=== PATIENT | female | born 1955 | race Caucasian/White ===

== ENCOUNTER 2017-01-09 20:57 | Emergency (ER) | payer MEDICAID ==
[2016-04-18 16:29] VITALS: BMI 41.2
[~2017-01-09 20:57] MED LIST: BENADRYL50 MG PO; CYCLOBENZAPRINE10 MG PO; DIFLUCAN200 MG PO; EFFEXOR75 MG PO; HYDROCODONE-APA1 TAB PO; IBUPROFEN600 MG PO; LEVAQUIN500 MG PO; LEVOTHYROXINE112 MCG PO; NEURONTIN600 MG PO; NORVASC5 MG PO; OMEPRAZOLE20 M1 PO; SUDOGEST30 MG PO; TENORETIC 50 TA1 TAB PO; ZANTAC150 MG PO; ZYRTEC10 MG PO
== END 2017-01-09 22:10 | disposition home or self-care (01) ==
LOC: D.ER 20:57
DX: S29.012A Strain of muscle and tendon of back wall of thorax, initial encounter (principal); V43.62XA Car passenger injured in collision with other type car in traffic accident, initial encounter; Y93.89 Activity, other specified; Y92.89 Other specified places as the place of occurrence of the external cause; F17.200 Nicotine dependence, unspecified, uncomplicated; E03.9 Hypothyroidism, unspecified; I10 Essential (primary) hypertension; F32.9 Major depressive disorder, single episode, unspecified

== ENCOUNTER 2017-04-14 09:14 | Day surgery (SDC) | payer MEDICAID ==
[~2017-04-14] VITALS: Ht 160 cm; Wt 113.2 kg
[2017-04-14] VITALS (10 sets, daily range): BP systolic 116–147; BP diastolic 42–70; Ht 160 cm; Wt 113.2 kg
[~2017-04-14 09:14] MED LIST changes: +LEVOTHYROXINE100 MCG PO; -LEVOTHYROXINE112 MCG PO
[2017-04-14] MEDS ORDERED: OMEPRAZOLE20 M1 PO (09:55)
[2017-04-14] MEDS ORDERED: ZIAC 10-6.25 MG1 TAB PO (09:56)
[2017-04-14 10:27] LABS: BASOPHILS 0.2 % (0-2); EOSINOPHILS 3.2 % (0-7); HEMOGLOBIN 13.5 g/dL (12-16); IMMATURE GRANULOCYTES 0.2 % (0-5); LYMPHOCYTES 46.7 % (15-50); MCH 31.3 pg (26.0-34.0); MCHC 35.5 g/dL (31.0-37.0); MCV 88.2 fL (80.0-100.0); MEAN PLATELET VOLUME 9.3 fL (7.4-10.4); MONOCYTES 7.8 % (2-11); NEUTROPHILS 41.9 % (40-80); PLATELET COUNT 183 10x3/uL (130-400); RBC 4.31 10x6/uL (4.00-5.40); RDW 12.5 % (11.5-14.5)
[2017-04-14 10:38] LABS: CALC OSMOLALITY 276 mosm/kg (275-300); CALCIUM 9.7 mg/dL (8.5-10.1); CARBON DIOXIDE 28.2 mmol/L (21.0-32.0); CHLORIDE - SERUM 101 mmol/L (98-107); CREATININE - SERUM 0.8 mg/dL (0.6-1.3); GLUCOSE 109 mg/dL (74-106); POTASSIUM - SERUM 3.7 mmol/L (3.5-5.1); SODIUM 138 mmol/L (136-145); UREA NITROGEN 12 mg/dL (7-18); eGFR NON AFRICAN AMERICAN 77 mL/min (90-120)
--- NOTE | 2017-04-14 15:02 | NUR ---
RECEIVED TO ROOM 2210 AT THIS TIME FROM PACU VIA BED. VITAL SIGNS STABLE. ALERT AND ORIENTED. AT BEDSIDE. WILL CONTINUE [facility] PLAN OF CARE. PT NPO.
--- NOTE | 2017-04-14 16:32 | OP ---
PATIENT NAME: TAYLOR HERRERA MEDICAL RECORD: [id number] :53 LOCATION:D.MS [id number] ADMISSION DATE: SURGEON: YAW SPEARS MD DATE OF OPERATION: 04/14/2017 PREOPERATIVE DIAGNOSES: 1. Gastroesophageal reflux disease. 2. Elevated LFTs. 3. Morbid obesity. 4. Hypertension. 5. Hyperthyroidism. 6. Sjogren's. 7. Raynaud's. 8. Post traumatic stress disorder. POSTOPERATIVE DIAGNOSES: 1. Gastroesophageal reflux disease. 2. Elevated LFTs. 3. Morbid obesity. 4. Hypertension. 5. Hyperthyroidism. 6. Sjogren's. 7. Raynaud's. 8. Post traumatic stress disorder. PROCEDURE: 1. Laparoscopic Yamel fundoplication. 2. Laparoscopic Eduardo-Cut liver biopsies. SURGEON: Yaw Spears MD REPORT OF PROCEDURE: The patient's abdomen was prepped and draped in sterile fashion. A Veress needle was inserted in the left upper quadrant and the abdomen was insufflated. An 11-mm Visiport trocar was then inserted in the midline just above the umbilicus. Under direct visualization, I could see the Veress needle and saw no sign of any injury to bowel or surrounding structures. Then, the Veress needle was removed. A 12-mm trocar was placed in the left subcostal region. A 5-mm trocar was placed in the epigastrium. A 5-mm trocar was placed in the left lateral abdomen and a final 5-mm trocar was placed in the right lateral subcostal region. The liver retractor was inserted and the left lobe of the liver was elevated. We then made a small puncture incision in the right upper quadrant in the subcostal region and passed a Eduardo-Cut biopsy device through the right side of the liver, multiple times and got 3 good course of tissue. Any bleeding from these spots was then treated with electrocautery. At this point, the lesser omentum was taken down using Harmonic scalpel up to the right side of the right janak. We dissected this out as much as possible anteriorly and posteriorly until we could see that side of the esophagus. There was no sign of a hiatal hernia present. We then took down the short gastrics using Harmonic scalpel and continued this to the left side of the right janak. Eventually, we had the crura completely dissected free and we could dissect into the thoracic cavity. The esophagus was visualized in 360-degree fashion and the vagus nerves were visualized and noted to be intact. We then reapproximated the esophageal hiatus using interrupted 0 Polydek times 2. We then performed a posterior 360 degree wrap at the fundus around the distal esophagus. This was sutured into place with 0 Polydeks times 3 with the top and the bottom sutures OPERATIVE REPORT [id number] TAYLOR HERRERA incorporating a bite of the esophagus. At this point, we irrigated out the abdomen and assured there was no sign of any bleeding. The liver retractor was then removed. The 11 and 12-mm trocar site fascias were then closed with interrupted 0 Vicryls using a Harrison-Bonny suture passer device. The ports and insufflation were then removed. The wounds were infused with a total of 10 mL of 0.25% Marcaine with epinephrine. We then closed the skin incisions with subcutaneous 5-0 Monocryl and dressed appropriately. COMPLICATIONS: None. CONDITION: Stable. ANESTHESIA: General endotracheal and local. BLOOD LOSS: Minimal. TRANSINT:[id number] Voice Confirmation ID: [id number] DOCUMENT ID: [id number] CC: Dr. Dwayne Vo, not located. YAW SPEARS MD at 1632 CC: KENDELL SMITH MD [id number] DICTATION DATE: 04/14/17 1406 SHIP LINER: 04/14/17 1420 [facility] [address] [place] [address]
--- NOTE | 2017-04-14 21:07 | NUR ---
PATIENT STATED SHE IS ITCHING ALL OVER. NO SIGNS OF HIVES OR RASH. SPOKE WITH , HE GAVE ME A ONE TIME ORDER, SEE ORDERS.
[2017-04-15 00:20] VITALS: BP 127/60
[2017-04-15 04:00] VITALS: BP 143/58
--- NOTE | 2017-04-15 05:00 | NUR ---
PATIENT BACK IN BED FROM THE BATHOOM. PATIENT REFUSED SCDS AT THIS TIME DUE TO ITCHING. BED IN LOWEST POSITION, CALL LIGHT IN REACH. BED RAILS UP X'S 2. PATIENT DENY NEEDS AT THIS TIME.
[2017-04-15 06:44] LABS: BASOPHILS 0.1 % (0-2); EOSINOPHILS 0 % (0-7); HEMATOCRIT 36.3 % (36.0-48.0); HEMOGLOBIN 12.5 g/dL (12-16); IMMATURE GRANULOCYTES 0.3 % (0-5); LYMPHOCYTES 23.5 % (15-50); MCH 31.1 pg (26.0-34.0); MCHC 34.4 g/dL (31.0-37.0); MEAN PLATELET VOLUME 10.2 fL (7.4-10.4); MONOCYTES 5.7 % (2-11); NEUTROPHILS 70.4 % (40-80); PLATELET COUNT 152 10x3/uL (130-400); RBC 4.02 10x6/uL (4.00-5.40); RDW 12.7 % (11.5-14.5)
[2017-04-15 06:45] LABS: MCV 90.3 fL (80.0-100.0); WBC 7.2 10x3/uL (4.8-10.8)
[2017-04-15 06:51] LABS: CALC OSMOLALITY 277 mosm/kg (275-300); CALCIUM 9.7 mg/dL (8.5-10.1); CARBON DIOXIDE 27.3 mmol/L (21.0-32.0); CHLORIDE - SERUM 102 mmol/L (98-107); CREATININE - SERUM 0.7 mg/dL (0.6-1.3); GLUCOSE 104 mg/dL (74-106); POTASSIUM - SERUM 4.1 mmol/L (3.5-5.1); SODIUM 140 mmol/L (136-145); UREA NITROGEN 11 mg/dL (7-18); eGFR NON AFRICAN AMERICAN 90 mL/min (90-120)
--- NOTE | 2017-04-15 07:05 | NUR ---
PATIENT RECEIVED IN LOW MCCLOUD POSITION RESTING QUIETLY. RESPIRATIONS EVEN AND UNLABORED. SIDE RAILS UP X2. BED IN LOW POSITION. CALL LIGHT IN REACH. DENIES NEEDS.
[2017-04-15 08:06] VITALS: BP 144/60
--- NOTE | 2017-04-15 08:20 | NUR ---
PATIENT OFF FLOOR TO RADIOLOGY VIA WHEELCHAIR
--- NOTE | 2017-04-15 09:33 | NUR ---
ALERT IN BED. C/O PAIN 03/19. SCHEDULED MEDICATION AND NORCO PER PRN ORDER. NO FURTHER NEEDS VOICED. SIDE RAILS UP X2. BED IN LOW POSITION. CALL LIGHT IN REACH. FAMILY PRESENT.
--- NOTE | 2017-04-15 11:15 | NUR ---
UP TO RESTROOM WITHOUT ASSIST. RATES PAIN 01/17. DENIES NEEDS. PRESENT.
[2017-04-15 12:25] VITALS: BP 134/58
[2017-04-15] MEDS ORDERED: REGLAN10 MG PO (13:22)
[2017-04-15] MEDS ORDERED: HYDROCODONE-APA1 TAB PO (13:22)
--- NOTE | 2017-04-15 14:00 | NUR ---
IV TO LEFT HAND D/C WITH CATH TIP INTACT. SITE COVERED WITH GAUZE AND BANDAID.
--- NOTE | 2017-04-15 15:05 | NUR ---
D/C TEACHING AND PAPER PRESCRIPTION PROVIDED. STATES UNDERSTANDING. DENIES QUESTIONS.
--- NOTE | 2017-04-15 15:17 | NUR ---
PATIENT D/C HOME WITH . TRANSFERRE DOWNSTAIRS VIA WHEELCHAIR WITH VOLUNTEER
== END 2017-04-15 15:18 | disposition home or self-care (01) ==
LOC: D.MS 09:14 → D.OPS 09:14 → D.MS 14:55 → D.OPS 04-15 15:18
PROVIDERS: Surgery
DX: K21.9 Gastro-esophageal reflux disease without esophagitis (principal); R79.89 Other specified abnormal findings of blood chemistry; E66.01 Morbid (severe) obesity due to excess calories; I10 Essential (primary) hypertension; E05.90 Thyrotoxicosis, unspecified without thyrotoxic crisis or storm; M35.00 Sjogren syndrome, unspecified; I73.00 Raynaud's syndrome without gangrene; F43.10 Post-traumatic stress disorder, unspecified; Z01.812 Encounter for preprocedural laboratory examination; Z68.41 Body mass index [BMI] 40.0-44.9, adult; F17.200 Nicotine dependence, unspecified, uncomplicated

== ENCOUNTER → 2019-10-11 11:10 | Outpatient (CLI) | payer MEDICAID ==
[2017-04-14 15:06] VITALS: BMI 44.2
[~2019-10-11 11:10] MED LIST changes: +REGLAN10 MG PO; +ZIAC 10-6.25 MG1 TAB PO
[2019-10-11 11:53] LABS: BASOPHILS 0.1 % (0-2); EOSINOPHILS 1.5 % (0-7); HEMATOCRIT 40.4 % (36.0-48.0); HEMOGLOBIN 14.2 g/dL (12-16); LYMPHOCYTES 41.1 % (15-50); MCH 32.1 pg (26.0-34.0); MCHC 35.1 g/dL (31.0-37.0); MCV 91.2 fL (80.0-100.0); MEAN PLATELET VOLUME 9.1 fL (7.4-10.4); MONOCYTES 7.8 % (2-11); NEUTROPHILS 49.5 % (40-80); RBC 4.43 10x6/uL (4.00-5.40); RDW 12.2 % (11.5-14.5); WBC 6.8 10x3/uL (4.8-10.8)
[2019-10-11 11:55] LABS: PLATELET COUNT 249 10x3/uL (130-400)
[2019-10-11 12:17] LABS: % SATURATION 22 % (15-55); IRON 87 ug/dl (35-150); TOTAL IRON BIND CAPACITY 379 ug/dl (260-445); UNSAT IRON BIND CAPACITY 292 ug/dl (150-375)
[2019-10-11 12:36] LABS: ALBUMIN 4.1 g/dL (3.4-5.0); ALKALINE PHOSPHATASE 33 U/L (30-120); ALT (SGPT) 161 U/L (10-68); BILIRUBIN - DIRECT 0.13 mg/dL (0.00-0.30); BILIRUBIN - INDIRECT 0.29 mg/dL (0.00-1.00); BILIRUBIN - TOTAL 0.42 mg/dL (0.2-1.3); FERRITIN 299 ng/mL (3-244); GAMMA GT 40 U/L (5-85); PROTEIN - SERUM 7.9 g/dL (6.4-8.2)
[2019-10-12 07:13] LABS: HAPTOGLOBIN 152 mg/dL (37-355)
[2019-10-12 09:11] LABS: HEPATITIS C ANTIBODY 0.4 S/CO RAT (0.0-0.9)
[2019-10-12 10:10] LABS: ANA REFLEX - ANTICHROMATIN ABS <0.2 AI (0.0-0.9); ANA REFLEX - CENTROMERE B ABS <0.2 AI (0.0-0.9); ANA REFLEX - DBL STRANDED DNA 1 IU/mL (0-9); ANA REFLEX - DIRECT Positive (Negative); ANA REFLEX - JO-1 AB <0.2 AI (0.0-0.9); ANA REFLEX - RNP ANTIBODIES 0.2 AI (0.0-0.9); ANA REFLEX - SCL-70 <0.2 AI (0.0-0.9); ANA REFLEX - SJOGRENS AB SSA >8.0 AI (0.0-0.9); ANA REFLEX - SJOGRENS AB SSB <0.2 AI (0.0-0.9); ANA REFLEX - SMITH AB <0.2 AI (0.0-0.9)
[2019-10-12 12:09] LABS: ALPHA FETOPROTEIN -(TUMOR MRK) 4.4 ng/mL (0.0-8.3)
== END | disposition home or self-care (01) ==
LOC: D.LAB 10:15 → D.CT 11:00 → D.LAB 11:10
PROVIDERS: ATTEND Internal Medicine Gastroenterology
DX: R10.11 Right upper quadrant pain (principal); R94.5 Abnormal results of liver function studies; R68.89 Other general symptoms and signs

== ENCOUNTER → 2019-10-26 14:43 | Outpatient (CLI) | payer MEDICAID ==
[2017-04-14 15:06] VITALS: BMI 44.2
== END | disposition home or self-care (01) ==
LOC: D.LAB 14:43
PROVIDERS: ATTEND Internal Medicine Gastroenterology
DX: R94.8 Abnormal results of function studies of other organs and systems (principal); R10.11 Right upper quadrant pain